=== PATIENT | male | born 1960 | race Caucasian/White ===

== ENCOUNTER 2024-01-07 02:14 | Inpatient (IN) | payer MEDICAID ==
[~2024-01-07] VITALS: Ht 180.3 cm; Wt 120.9 kg
[2024-01-07 02:34] LABS: BASOPHILS % (AUTO) 0.4 % (0-1); EOSINOPHILS % (AUTO) 0 % (0-6); HEMATOCRIT 40.5 % (42.0-52.0); HEMOGLOBIN 13.3 g/dl (14.0-17.9); LYMPHOCYTES # (AUTO) 0.7 X10'3 (1.1-4.8); MEAN CORPUSCULAR HEMOGLOBIN 28.6 PG (27.0-31.0); MEAN CORPUSCULAR HGB CONC 32.9 g/dL (33.0-36.5); MEAN CORPUSCULAR VOLUME 87.1 FL (78-98); MEAN PLATELET VOLUME 7.2 FL (7.4-10.4); MONOCYTES # (AUTO) 0.6 X10'3 (0-0.9); MONOCYTES % (AUTO) 5.4 % (2-12); NEUTROPHILS % (AUTO) 88.2 % (42-75); PLATELET COUNT 267 X10'3 (140-440); RED BLOOD COUNT 4.65 X10'6 (4.70-6.10); RED CELL DISTRIBUTION WIDTH 15.3 % (11.5-14.5); WHITE BLOOD COUNT 11.3 X10'3 (4.5-11.0)
[2024-01-07 02:50] LABS: ALANINE AMINOTRANSFERASE 20 U/L (12-78); ALBUMIN 3.3 G/DL (3.4-5.0); ALKALINE PHOSPHATASE 79 IU/L (46-116); ANION GAP 12 (8-16); ASPARTATE AMINO TRANSFERASE 20 U/L (10-37); BILIRUBIN,TOTAL 0.4 MG/DL (0.1-1.0); BLOOD UREA NITROGEN 24 MG/DL (7-18); BUN/CREATININE RATIO 13.7 (10.0-20.0); CALCIUM 8.8 MG/DL (8.5-10.1); CHLORIDE 106 MMOL/L (99-107); CREATININE 1.75 MG/DL (0.60-1.10); GLUCOSE 147 MG/DL (70-104); POTASSIUM 4.7 MMOL/L (3.5-5.1); SODIUM 140 MMOL/L (135-145); TOTAL CARBON DIOXIDE 21.6 MMOL/L (24-32); TOTAL PROTEIN 6.5 G/DL (6.4-8.2); eCRCL 45 ML/MIN; eGFR 39 ML/MIN
[2024-01-07] MEDS: normal saline 1000ml 1,000 ML IV ONE ×2 (02:56→03:35)
[2024-01-07] MEDS: ondansetron/PF 4mg/2ml inj IV ONE (02:56)
[2024-01-07 02:58] LABS: PRO BRAIN NATRIURETIC PEPTIDE 701 PG/ML (0-125)
[2024-01-07] MEDS: CefTRIAXone 2gm/D5W 50ml BAG 50 ML IV ONE (03:08)
[2024-01-07] MEDS: hydrALAZINE 20mg/ml inj. IV ONE ×2 (04:52→23:02)
[2024-01-07] MEDS ORDERED: ondansetron/PF 4mg/2ml inj IV PRN (04:55)
[2024-01-07] MEDS ORDERED: acetaminophen 325mg tablet PO PRN (04:55)
[2024-01-07] MEDS ORDERED: magnesium sulf-water 2g/50mL 50 ML IV PRN (04:55)
[2024-01-07] MEDS ORDERED: magnesium Cl slow-release 64mg tablet PO PRN (04:55)
[2024-01-07] MEDS ORDERED: magnesium sulf-water 4G/100mL 100 ML IV PRN (04:55)
[2024-01-07] MEDS ORDERED: potassium Cl 20 mEq SR tablet PO PRN ×2 (04:55)
[2024-01-07] MEDS ORDERED: potassium Cl 40MEQ/1/2NS 520ml 520 ML IV PRN (04:55)
[2024-01-07] MEDS ORDERED: morphine 2 MG/ML inj. syringe IV PRN (04:55)
[2024-01-07] MEDS ORDERED: mag hydrox/Alum hydrox/simeth 30ml oral suspension PO PRN (04:55)
[2024-01-07] MEDS ORDERED: magnesium hydroxide 30ml (MOM) UD suspension PO PRN (04:55)
[2024-01-07] MEDS ORDERED: DEXTROSE 15 GM of carb/4 tabs (each vial/BOTTLE has 4 tablets) PO PRN ×2 (05:10)
[2024-01-07] MEDS ORDERED: dextrose 50%-water 50ml dispensing syringe IV PRN ×2 (05:10)
[2024-01-07] MEDS ORDERED: glucagon, human recombinant 1mg kit SUBCUT PRN (05:10)
[2024-01-07] MEDS: normal saline 1000ml 1,000 ML IV SCH (05:18)
[2024-01-07] MEDS: azithromycin/NS 500mg/250ml 250 ML IV SCH (05:20)
[2024-01-07] MEDS: aspirin 325mg tablet, delayed-release (Ecotrin) PO ONE (05:24)
[2024-01-07 05:26] LABS: D-DIMER 1.02 MG/L FEU (0-0.50)
[2024-01-07] MEDS: INSULIN LISPRO 100 UNIT/ML INSULN.PEN MULTI-DOSE SQ SCH (07:00)
[2024-01-07 07:26] LABS: MEAN CORPUSCULAR HEMOGLOBIN 28.1 PG (27.0-31.0); MEAN CORPUSCULAR HGB CONC 32.4 g/dL (33.0-36.5); MEAN CORPUSCULAR VOLUME 86.6 FL (78-98); MEAN PLATELET VOLUME 7.4 FL (7.4-10.4); PLATELET COUNT 243 X10'3 (140-440); RED BLOOD COUNT 4.27 X10'6 (4.70-6.10); WHITE BLOOD COUNT 13.6 X10'3 (4.5-11.0)
[2024-01-07 07:33] LABS: BILIRUBIN,URINE NEGATIVE (Neg); CLARITY,URINE SLIGHTLY CLOUDY (Clear); COLOR,URINE YELLOW (Yellow); GLUCOSE, URINE >=1000 mg/dl (Neg); KETONES,URINE TRACE mg/dl (Neg); LEUKOCYTE ESTERASE ,URINE NEGATIVE (Neg); NITRITES, URINE NEGATIVE (Neg); OCCULT BLOOD,URINE NEGATIVE (Neg); PH,URINE 5.5 (4.8-8.0); PROTEIN,URINE 100 mg/dl (Neg); UROBILINOGEN,URINE 0.2 E.U/dL (0.2-1.0)
[2024-01-07] MEDS ORDERED: INSU100I5 SQ (07:36)
[2024-01-07] MEDS ORDERED: NEED-136 (07:36)
[2024-01-07] MEDS ORDERED: TRAZ150T78 (07:36)
[2024-01-07] MEDS ORDERED: ERTU15TA PO (07:36)
[2024-01-07] MEDS ORDERED: TRAZ-251 (07:36)
[2024-01-07] MEDS ORDERED: PIOG15TA67 PO (07:36)
[2024-01-07 07:37] LABS: UA COLLECTION TYPE URINAL
[2024-01-07 07:38] LABS: BACTERIA,URINE FEW /HPF (Neg); HYALINE CASTS 0-3 /LPF (NEGATIVE); SQUAMOUS EPITHELIAL CELL,UR FEW /LPF (FEW); WBC,URINE 0-4 /HPF (0-4)
[2024-01-07 07:44] LABS: MAGNESIUM 1.6 MG/DL (1.5-2.4)
[2024-01-07 07:51] LABS: HEMOGLOBIN A1C 7.1 % (4.5-6.2)
[2024-01-07] MEDS: K and/or MAG REPLACEMENT MC SCH (08:00)
[2024-01-07] MEDS: heparin, porcine 5000 units/ml vial SQ SCH (08:00)
[2024-01-07] MEDS: docusate sod 100mg capsule PO SCH (08:15)
[2024-01-07] MEDS: ringers solution, lacted 1,000 ML IV SCH (08:15)
[2024-01-07] MEDS: ipratropium/albuterol 3ml nebule NEB SCH (08:19)
[2024-01-07 08:27] VITALS: PULSE 85; RESP 18; O2SAT 96
[2024-01-07 08:35] VITALS: PULSE 102; RESP 19
[2024-01-07] MEDS: HEPARIN DRIP DVT/PE -**PHARMACIST TO DOSE IV ONE (08:35)
[2024-01-07] MEDS: methylPREDNISolone sod succ 125mg/2ml vial IV ONE (09:03)
[2024-01-07 09:19] LABS: PROTHROMBIN TIME 10.8 SECONDS (9.0-12.0)
[2024-01-07] MEDS ORDERED: heparin 25,000 UNIT/250ml bag 250 ML IV PRN (09:25)
[2024-01-07 10:08] LABS: BASOPHILS # (AUTO) 0.1 X10'3 (0-0.2); BASOPHILS % (AUTO) 0.5 % (0-1); EOSINOPHILS % (AUTO) 0 % (0-6); LYMPHOCYTES # (AUTO) 0.6 X10'3 (1.1-4.8); LYMPHOCYTES % (AUTO) 4.4 % (21-51); MONOCYTES % (AUTO) 7.4 % (2-12); NEUTROPHILS # (AUTO) 12.2 X10'3 (1.8-7.7); NEUTROPHILS % (AUTO) 87.7 % (42-75)
[2024-01-07] MEDS: heparin 10,000 units/1 ML INJ IV ONE (10:37)
[2024-01-07] MEDS: heparin 25,000 UNIT/250ml bag 250 ML IV PRN (10:38)
[2024-01-07] MEDS: MESSAGE TO NURSING IV ONE ×3 (10:39→23:07)
[2024-01-07] MEDS ORDERED: ipratropium/albuterol 3ml nebule NEB PRN (11:00)
[2024-01-07] MEDS: methylPREDNISolone sod succ/PF 40mg inj. IV SCH (16:00)
[2024-01-07] MEDS: magnesium sulf-water 2g/50mL 50 ML IV ONE (19:52)
[2024-01-07 20:45] VITALS: BP 188/98; PULSE 81; RESP 14; TEMP 97.7; O2SAT 96
[2024-01-07] MEDS: insulin glargine (Lantus) pen - multi-dose SQ SCH (21:20)
[2024-01-07] MEDS: CefTRIAXone/D5W-Rocephin 1gm 50 ML IV SCH (23:41)
[2024-01-07 23:45] VITALS: BP 150/76
[2024-01-07 23:51] VITALS: PULSE 84; RESP 18; O2SAT 96
[2024-01-08] VITALS (11 sets, daily range): BP systolic 156–194; BP diastolic 69–98; PULSE 80–101; RESP 14–20; TEMP 98.1–98.9; O2SAT 94–96
[2024-01-08] MEDS: Melatonin 3mg tablet PO SCH (01:29)
[2024-01-08 04:24] LABS: BASOPHILS # (AUTO) 0.1 X10'3 (0-0.2); BASOPHILS % (AUTO) 0.4 % (0-1); EOSINOPHILS % (AUTO) 0 % (0-6); HEMATOCRIT 36.3 % (42.0-52.0); HEMOGLOBIN 11.9 g/dl (14.0-17.9); LYMPHOCYTES # (AUTO) 0.7 X10'3 (1.1-4.8); LYMPHOCYTES % (AUTO) 4.4 % (21-51); MEAN CORPUSCULAR HEMOGLOBIN 28.3 PG (27.0-31.0); MEAN CORPUSCULAR HGB CONC 32.8 g/dL (33.0-36.5); MEAN CORPUSCULAR VOLUME 86.3 FL (78-98); MEAN PLATELET VOLUME 7.6 FL (7.4-10.4); MONOCYTES # (AUTO) 0.5 X10'3 (0-0.9); MONOCYTES % (AUTO) 2.7 % (2-12); NEUTROPHILS # (AUTO) 15.5 X10'3 (1.8-7.7); NEUTROPHILS % (AUTO) 92.5 % (42-75); PLATELET COUNT 228 X10'3 (140-440); RED BLOOD COUNT 4.21 X10'6 (4.70-6.10); RED CELL DISTRIBUTION WIDTH 15.5 % (11.5-14.5); WHITE BLOOD COUNT 16.8 X10'3 (4.5-11.0)
[2024-01-08 04:36] LABS: ALANINE AMINOTRANSFERASE 17 U/L (12-78); ALBUMIN 2.8 G/DL (3.4-5.0); ALBUMIN/GLOBULIN RATIO 0.8 (1.1-1.5); ALKALINE PHOSPHATASE 71 IU/L (46-116); ANION GAP 8 (8-16); ASPARTATE AMINO TRANSFERASE 17 U/L (10-37); BILIRUBIN,TOTAL 0.3 MG/DL (0.1-1.0); BLOOD UREA NITROGEN 32 MG/DL (7-18); BUN/CREATININE RATIO 19.9 (10.0-20.0); CALCIUM 8.9 MG/DL (8.5-10.1); CHLORIDE 106 MMOL/L (99-107); CREATININE 1.61 MG/DL (0.60-1.10); GLUCOSE 273 MG/DL (70-104); MAGNESIUM 2.2 MG/DL (1.5-2.4); POTASSIUM 4.9 MMOL/L (3.5-5.1); SODIUM 138 MMOL/L (135-145); TOTAL CARBON DIOXIDE 23.6 MMOL/L (24-32); TOTAL PROTEIN 6.3 G/DL (6.4-8.2); eCRCL 49 ML/MIN; eGFR 43 ML/MIN
[2024-01-08] MEDS: MESSAGE TO NURSING IV ONE ×4 (05:08→23:50)
[2024-01-08] MEDS: FLU VACC TS2024-25(6MOS UP)/PF 45 MCG/0.5 ML SYRINGE IMVAC ONE (08:00)
[2024-01-08] MEDS: pneumococcal 23-VAL P-sac vacc 25 mcg/0.5ml vial IMVAC ONE (08:02)
[2024-01-08] MEDS: lisinopril 20mg tablet PO SCH (09:34)
[2024-01-08 10:43] LABS: PROTHROMBIN TIME 10.5 SECONDS (9.0-12.0)
[2024-01-08] MEDS: heparin 10,000 units/1 ML INJ IV PRN (17:06)
[2024-01-08] MEDS ORDERED: metoprolol tartrate 1mg/ml inj IV PRN (17:45)
[2024-01-08] MEDS: lactobacillus rhamnosus 10,000 MMU CELLS/CAPSULE PO SCH (20:35)
[2024-01-08] MEDS: insulin glargine (Lantus) pen - multi-dose SQ SCH (20:43)
[2024-01-08] MEDS: INSULIN LISPRO 100 UNIT/ML INSULN.PEN MULTI-DOSE SQ SCH (20:46)
[2024-01-09 04:35] LABS: BASOPHILS # (AUTO) 0.1 X10'3 (0-0.2); BASOPHILS % (AUTO) 0.4 % (0-1); EOSINOPHILS % (AUTO) 0 % (0-6); HEMATOCRIT 37.4 % (42.0-52.0); HEMOGLOBIN 12.1 g/dl (14.0-17.9); LYMPHOCYTES # (AUTO) 0.9 X10'3 (1.1-4.8); LYMPHOCYTES % (AUTO) 6.1 % (21-51); MEAN CORPUSCULAR HEMOGLOBIN 28.2 PG (27.0-31.0); MEAN CORPUSCULAR HGB CONC 32.3 g/dL (33.0-36.5); MEAN CORPUSCULAR VOLUME 87.5 FL (78-98); MEAN PLATELET VOLUME 7.8 FL (7.4-10.4); MONOCYTES # (AUTO) 0.6 X10'3 (0-0.9); MONOCYTES % (AUTO) 3.6 % (2-12); NEUTROPHILS % (AUTO) 89.9 % (42-75); PLATELET COUNT 234 X10'3 (140-440); RED BLOOD COUNT 4.27 X10'6 (4.70-6.10); RED CELL DISTRIBUTION WIDTH 15.9 % (11.5-14.5); WHITE BLOOD COUNT 15.6 X10'3 (4.5-11.0)
[2024-01-09 04:53] LABS: ALANINE AMINOTRANSFERASE 18 U/L (12-78); ALBUMIN/GLOBULIN RATIO 0.9 (1.1-1.5); ALKALINE PHOSPHATASE 71 IU/L (46-116); ANION GAP 8 (8-16); ASPARTATE AMINO TRANSFERASE 15 U/L (10-37); BILIRUBIN,TOTAL 0.3 MG/DL (0.1-1.0); BLOOD UREA NITROGEN 38 MG/DL (7-18); CALCIUM 8.5 MG/DL (8.5-10.1); CHLORIDE 104 MMOL/L (99-107); CREATININE 1.65 MG/DL (0.60-1.10); GLUCOSE 290 MG/DL (70-104); MAGNESIUM 1.6 MG/DL (1.5-2.4); POTASSIUM 4.9 MMOL/L (3.5-5.1); SODIUM 136 MMOL/L (135-145); TOTAL CARBON DIOXIDE 24.4 MMOL/L (24-32); TOTAL PROTEIN 6.4 G/DL (6.4-8.2); eCRCL 48 ML/MIN; eGFR 42 ML/MIN
[2024-01-09] MEDS: MESSAGE TO NURSING IV ONE (05:12)
[2024-01-09 06:30] VITALS: BP 184/87; PULSE 72; RESP 18; TEMP 97.3; O2SAT 97
[2024-01-09] MEDS: pantoprazole 40mg Tablet.DR PO SCH (07:40)
[2024-01-09 08:00] VITALS: RESP 16; RESP 18; O2SAT 94; O2SAT 99
[2024-01-09] MEDS: amLODIPine 5mg tablet PO SCH (09:00)
[2024-01-09 09:15] LABS: PROTHROMBIN TIME 10.3 SECONDS (9.0-12.0)
[2024-01-09 09:38] VITALS: PULSE 98; RESP 20; O2SAT 96
[2024-01-09 10:00] VITALS: BP 164/77; PULSE 73; RESP 16; TEMP 97.2; O2SAT 99
[2024-01-09] MEDS ORDERED: LISI20TA28 PO (10:59)
[2024-01-09] MEDS ORDERED: LACT1CAP26 PO (10:59)
[2024-01-09] MEDS ORDERED: NOR5T PO (10:59)
[2024-01-09] MEDS ORDERED: PANT40TA54 PO (10:59)
[2024-01-09 11:03] VITALS: BP_SYST 184; PULSE 85
[2024-01-09] MEDS: lisinopril 20mg tablet PO STA (11:03)
[2024-01-09] MEDS ORDERED: AMOX-117 PO (12:24)
[2024-01-09] MEDS ORDERED: PRED10TA23 PO (12:24)
[2024-01-10] MEDS ORDERED: lisinopril 20mg tablet PO SCH (08:00)
== END 2024-01-09 13:05 | disposition home or self-care (01) | DRG 720 ==
LOC: ER 02:14 → ED HOLD 05:01 → EDBEDREQ 19:40 → ORTHO 4S 20:45
PROVIDERS: ADMIT Internal Medicine Sleep Medicine; ATTEND Family Medicine
PROC: CB1YYZZ Planar Nuclear Medicine Imaging of Respiratory System using Other Radionuclide (ICD-10-PCS; principal; 2024-01-08)
DX: A41.9 Sepsis, unspecified organism (principal); J96.01 Acute respiratory failure with hypoxia; I21.A1 Myocardial infarction type 2; J18.9 Pneumonia, unspecified organism; E87.20 Acidosis, unspecified; G20.A1 Parkinson's disease without dyskinesia, without mention of fluctuations; Z20.822 Contact with and (suspected) exposure to COVID-19; I16.0 Hypertensive urgency; I12.9 Hypertensive chronic kidney disease with stage 1 through stage 4 chronic kidney disease, or unspecified chronic kidney disease; N18.30 Chronic kidney disease, stage 3 unspecified; G47.33 Obstructive sleep apnea (adult) (pediatric); E66.01 Morbid (severe) obesity due to excess calories; Z68.37 Body mass index [BMI] 37.0-37.9, adult
CPT/HCPCS: 36415; 71045; 80053; 81001; 82948; 83036; 83605; 83735; 83880; 84145; 84484; 85025; 85027; 85379; 85610; 85730; 87040; 87081; 87502; 87503; 87811; 90686; 90732; 93005; 93308; 94640; 94760; 96365; 96375; 99285; A6590; G0378; J0360; J0456; J0696; J1644; J1815; J2405; J2919; J7030; J7120

== ENCOUNTER 2024-10-23 10:07 | Inpatient (IN) | payer MEDICAID ==
[~2024-10-23] VITALS: Ht 180.3 cm; Wt 115.9 kg
[~2024-10-23 10:07] MED LIST: ERTU15TA PO; INSU100I5 SQ; LACT1CAP26 PO; LISI20TA28 PO; NEED-136; NOR5T PO; PANT40TA54 PO; PIOG15TA67 PO; TRAZ-251; TRAZ150T78
[2024-10-23 10:39] LABS: MEAN PLATELET VOLUME 7.2 FL (7.4-10.4); RED CELL DISTRIBUTION WIDTH 15.6 % (11.5-14.5)
--- NOTE | 2024-10-23 10:43 | RADIOLOGY REPORT ---
CHEST RADIOGRAPH Indication: Weakness Technique: Single frontal view of the chest was obtained COMPARISON: DI CHEST,SINGLE VIEW on DOS: 01/07/24 FINDINGS: Lines and Tubes: None Lungs: Clear Pleura: No effusion. No pneumothorax. Cardiomediastinal contours: Unremarkable Bones: Unremarkable IMPRESSION: No acute disease.
[2024-10-23 10:55] LABS: CREATININE 2.07 MG/DL (0.60-1.10); TOTAL CARBON DIOXIDE 22.8 MMOL/L (24-32); eCRCL 38 ML/MIN; eGFR 32 ML/MIN
[2024-10-23] MEDS: dextrose 50%-water 50ml dispensing syringe IV ONE (11:52)
--- NOTE | 2024-10-23 12:38 | Physician Documentation ---
History of Present Illness ~ Chief Complaint: Hypoglycemia Stated Complaint: LOW BLOOD SUGAR Time Seen by MD: 10:11 Primary Medical Doctor: ROSETTE Mode of Arrival: EMS HPI This is a 64-year-old gentleman with a known history of type 2 diabetes, on insulin therapy, took actually less insulin this morning than usual, was brought in for evaluation of transient altered mental status with a unreadable glucose. The gentleman states that he was not his usual state of health earlier this morning, shopping at 10/23, when suddenly he developed slurred speech, severe confusion, was noted to be hypoglycemic. Received glucose with a recovery of the his mental status. This never happened to him in the past. No palliating or aggravating factors. Denies any preceding fever, chills, nausea, vomiting, diarrhea, abdominal pain, dysuria hematuria. Denies any current symptoms. Medication Reconciliation Allergies: Coded Allergies: No Known Allergies (Unverified , 10/23/24) Scheduled Amlodipine Besylate (Amlodipine Besylate), 10 MG PO DAILY Ertugliflozin Pidolate (Steglatro), 1 TAB PO DAILY, (Reported) Lactobacillus Rhamnosus (Culturelle), 10,000 MMU PO BID Lisinopril (Lisinopril), 40 MG PO DAILY Pantoprazole Sodium (Pantoprazole Sodium), 40 MG PO BKF Pioglitazone Hcl (Pioglitazone Hcl), 1 TAB PO DAILY, (Reported) Miscellaneous Medications Insulin Npl/Insulin Lispro (Humalog Mix 75-25 Kwikpen), SQ, (Reported) Trazodone HCl (Trazodone HCl), (Reported) Trazodone Hcl (Trazodone Hcl), (Reported) Durable Medical Equipment [place], Insulin Disposable (Bd Ultra-Fine Pen Needle), (Reported), (DME) Review of Systems ROS 10 point review of systems was performed and unless noted above in HPI is negative for acute process/complaint. Physical Exam Vital Signs: Temperature: 97.9, Source: Axillary, Heart Rate: 69, Respiratory Rate: 19, BP: 162/84, Pulse Oximetry: 98, Weight: 115.900 Oxygen Flow Rate: 0 Physical Exam GENERAL: Awake, alert, oriented, GCS 15, no apparent distress, non-toxic appearing, answers questions, follows commands appropriately. Examined in bed 4. HEENT: Atraumatic, normocephalic, pupils equal, extraocular muscles intact, sclerae anicteric, mucus membranes moist, oropharynx is clear, no stridor. NECK: supple, full active range of motion, trachea midline, no thyromegaly, no lymphadenopathy, no JVD. CARDIOVASCULAR: regular rate/rhythm, no murmurs/gallops/rubs, Pulses are 2+ in all extremities and symmetric. Capillary refill less than 2 seconds. PULMONARY: Nonlabored, good air movement ,no respiratory distress, speaking in full sentences, clear to auscultation bilaterally, no wheezing, no ronchi, no rales, no accessory muscle use. GASTROINTESTINAL: Soft, non-tender, non-distended, normal active bowel sounds, no organomegaly, no pulsatile masses, no CVA tenderness. NEUROLOGIC: Lucid with normal mental status. Normal facial symmetry. Moves all extremities symmetrically and with purpose. No truncal ataxia. Speech is fluid without evidence of dysarthria or aphasia, no focal deficits appreciated. Chronic parkinsonian tremor noted MUSCULOSKELETAL: There is full range of motion of all extremities. There is no joint pain or joint swelling or joint erythema. There is no muscle pain or tenderness or swelling. EXTREMITIES: warm, well-perfused, no cyanosis, no clubbing, no edema, no acute deformities. Skin: warm, dry, no rashes or lesions, no jaundice, no petechiae orpurpura. No ecchymosis. PSYCHIATRIC: Normal affect, normal insight, normal concentration. Focused exam: [] Progress Results/Orders Results/Orders Orders - JAGRUTI MARIE DO Urinalysis, Cult If Indicated (10/23/24 10:15) Chest,Single View (10/23/24 10:15) Monitor (10/23/24 10:15) Saline Lock (10/23/24 10:15) Hs Troponin I W Calculations (10/23/24 13:15) D5ns 1000ml (10/23/24 13:40) Completed Orders - JAGRUTI MARIE DO Cbc/Diff (10/23/24 10:15) ESR (10/23/24 10:15) C-Reactive Protein (10/23/24 10:15) Chest,Single View (10/23/24 10:15) MG (10/23/24 10:15) TSH (10/23/24 10:15) Free T4 (10/23/24 10:15) CMP (10/23/24 10:15) Hs Troponin I W Calculations (10/23/24 10:15) Hs Troponin I W Calculations (10/23/24 12:15) Dextrose 50%-Water (Dextrose 50%-Water S (10/23/24 11:50) Medications Received in ER Medications (Trade) Dose Ordered Sig/Guille Route PRN Reason Start Time Stop Time Status Last Admin Dose Admin (dextrose 50%-water syringe) 25 ml ONCE ONCE IV 10/23/24 11:50 10/23/24 11:51 DC 10/23/24 11:52 25 ML Vital Signs 10/23/24 10/23/24 10/23/24 10:11 10:24 11:55 Temp 97.9 Pulse 71 69 Resp 18 19 B/P (MAP) 148/61 162/84 (110) Pulse Ox 98 98 O2 Flow Rate 0 0 Laboratory Tests Test 10/23/24 10:22 10/23/24 10:32 10/23/24 11:46 10/23/24 12:31 White Blood Count 11.7 H Red Blood Count 4.34 L Hemoglobin 12.7 L Hematocrit 38.0 L Mean Corpuscular Volume 87.6 Mean Corpuscular Hemoglobin 29.2 Mean Corpuscular Hemoglobin Concent 33.3 Red Cell Distribution Width 15.6 H Platelet Count 231 Mean Platelet Volume 7.2 L Neutrophils (%) (Auto) 86.7 H Lymphocytes (%) (Auto) 7.2 L Monocytes (%) (Auto) 5.5 Eosinophils (%) (Auto) 0.2 Basophils (%) (Auto) 0.4 Neutrophils # (Auto) 10.1 H Lymphocytes # (Auto) 0.8 L Monocytes # (Auto) 0.6 Eosinophils # (Auto) 0.0 Basophils # (Auto) 0.0 CBC Comment Erythrocyte Sedimentation Rate 5 Sodium Level 135 Potassium Level 3.9 Chloride Level 104 Carbon Dioxide Level 22.8 L Anion Gap 8 Blood Urea Nitrogen 52 H Creatinine 2.07 H Estimated GFR/1.73 m2 32 BUN/Creatinine Ratio 25.1 H Glucose Level 94 Calcium Level 8.8 Magnesium Level 2.0 Total Bilirubin 0.3 Aspartate Amino Transf (AST/SGOT) 21 Alanine Aminotransferase (ALT/SGPT) 14 Alkaline Phosphatase 94 Troponin I High Sensitivity 9 17 C-Reactive Protein < 0.05 Total Protein 6.4 Albumin 3.4 Globulin 3.0 Albumin/Globulin Ratio 1.1 Thyroid Stimulating Hormone (TSH) 2.15 Free Thyroxine 0.73 Chemistry Comments Glucometer 108 H 68 L 91 Troponin I High Sens Percent Delta 88 Troponin I Hi Sens Absolute Change 8 Test 10/23/24 13:14 10/23/24 13:26 Glucometer 87 Medical Decision Making Findings Facility Status: ED Holds, [facility] process The plan was discussed with the patient, who demonstrates clear understanding of the plan and is in agreement with the plan unless otherwise noted in the chart. All questions have been answered, all concerns were addressed unless otherwise documented. I was available throughout their ED stay for frequent reassessment and questions. Differential Diagnoses (considered and possible or likely): [Hypoglycemia secondary to occult bacteremia, urinary tract infection, pneumonia, medication error] ??Differential Diagnoses (considered and unlikely, not requiring evaluation currently): [No evidence of CVA] MDM Data Please see [facility] for the following: Independent Historians and external Records Review. Historian: [Patient] Independent Historians: ?[EMS] Medication Management: [Reviewed medication list] Social History and determinants: [Reviewed] Please see the body of the note for the following: Any independent interpretations of ECG, imaging studies. All vitals signs/haemodynamics, ordered tests were independently reviewed and interpreted by myself. Nursing triage complaint and vitals reviewed, additional nursing notes were reviewed as available and I agree unless otherwise noted or documented in contradiction in the chart Vital Signs: Independently reviewed Labs: Independently interpreted Imaging: Independently interpreted Old Medical Records: Independently reviewed, see [facility] for relevant summary and information Pulse Oximetry: [96%] interpreted as [normal on room air] by me [Tie Carrier: [Regular Rate, Regular rhythm, no ectopy, NSR] reviewed and interpreted by me] Additionally notably showing: [Hemodynamics reviewed. The patient is not febrile, not tachycardic, no evidence of hypotension respiratory distress. Laboratory study notable for normal CBC except for 86% neutrophilic predominance. Could be reactive demargination. Chemistry notable for CAMRON on CKD in the setting of dehydration. Chemistry glucose was 94, an hour later it was 68. The gentleman required additional rescue medication. Thyroid studies are normal. Imaging shows no acute disease of the chest.] Unfortunately he does not maintain his blood sugars expected and continues to drop despite interventions. Tests considered but not ordered include: [Advanced imaging does not appear to be necessary in the setting] Social Determinants of Health Impact: Patient was evaluated in [facility] [place] to healthcare due to below par ratio of patient to medical providers. [] Comorbid Conditions Impacting Present Evaluation and Care/Treatment: [Diabetes] Management Discussions with other Healthcare Providers: [Hospitalist regarding admission] Treatment and Disposition Medication Management (Given or considered): [Glucose including drip]. See EMR for details Consideration for Hospitalization/Escalation/Deescalation of Care: Admission for observation has been considered, and is necessary for further management of his unexplained hypoglycemia ?ED Course:?[No recurrence of severe hypoglycemia, but does not maintain glucose despite of administration of D50.] ?Shared decision making:?[] Code status:?FULL Please see the full Electronic Medical Record for full details of nursing documentation, medications list, other records of complete past medical history and conditions, vital signs, laboratory studies, and any radiologic study interpretations by radiologists. Portions of this note were completed using [employer] dictation software and as a result there may exist minor errors in spelling. I have reviewed elements of past family and social history and agree as included in note. Departure Disposition: ADMITTED INPATIENT Admitted to Inpatient Unit: to hospitalist Impression: Primary Impression: Hypoglycemia Additional Impressions: Acute kidney injury Transient alteration of awareness Condition: Guarded Referrals: NO PRIMARY CARE PROVIDER (PCP) Signature Scribe Signature: No scribe Attestation: This note accurately reflects clinical decisions, work performed by myself, DO CYNTHIA Storey NICHOLAS M DO Oct 23, 2024 12:38
--- NOTE | 2024-10-23 13:44 | ELECTROCARDIOGRAPH REPORT ---
[facility] Test Date: 2024-10-23 Test Time: 10:17:12 Pat Name: LUCHO LOPEZ Department: EMERGENCY ROOM Room: Gender: M Programmer Developer: : 1960 Requested By: DEPARTMENT EMERGENCY Order Number: [id number] Reading MD: Measurements Intervals [place] Rate: 70 P: 60 WA: 35 QRS: 52 QRSD: 132 T: 19 QT: 383 QTc: 414 Interpretive Statements Sinus rhythm Short WA interval Nonspecific intraventricular conduction delay Please click the below link to view image of tracing.
[2024-10-23] MEDS ORDERED: magnesium sulf-water 4G/100mL 100 ML IV PRN (13:55)
[2024-10-23] MEDS ORDERED: potassium Cl 20 mEq SR tablet PO PRN ×2 (13:55)
[2024-10-23] MEDS ORDERED: magnesium sulf-water 2g/50mL 50 ML IV PRN (13:55)
[2024-10-23] MEDS ORDERED: ondansetron/PF 4mg/2ml inj IV PRN (13:55)
[2024-10-23] MEDS: PERFLUTREN PROTEIN-A MICROSPHR (Optison) 0.22 MG/ML 3ML VIAL IV ONE (13:55)
[2024-10-23] MEDS ORDERED: potassium Cl 40MEQ/1/2NS 520ml 520 ML IV PRN (13:55)
[2024-10-23] MEDS ORDERED: magnesium Cl slow-release 64mg tablet PO PRN (13:55)
--- NOTE | 2024-10-23 14:42 | HISTORY AND PHYSICAL-Residence ---
History & Physical Providers to CC Resident Creating Document: LORE GARG SOURAV ~ History of Present Illness Primary Medical Doctor: ROSETTE Reason for Admit\\Complaint: slurred speech, hypoglycemia History of Present Illness The patient is a 64-year-old male with longstanding type 2 diabetes mellitus on insulin therapy who presented for evaluation of an acute episode of confusion and slurred speech. Earlier this morning, while shopping at 7:11 a.m. around 8:00 a.m., he developed sudden onset of slurred speech, severe confusion, and unsteady gait, describing himself as "drunk like." He returned home and drank soda punch, which provided "some" relief. He called 911; paramedics found him confused with a glucose of 87. In the ED, he received glucose and his mental status improved. He denies loss of consciousness, seizure activity, urinary incontinence, chest pain, diaphoresis, fever, chills, nausea, vomiting, abdominal pain, or urinary symptoms. No recent medication. Of note, he was diagnosed with Parkinson's disease five month ago, he recently started on Sinemet. He takes 42 units of insulin in the morning and 38 units at night. Today he took 28 units of insulin of at 5:30 a.m. in the morning. Allergies: Coded Allergies: No Known Allergies (Unverified , 10/23/24) Home Medications Home Medications Active Culturelle (Lactobacillus Rhamnosus) 10 Billion Cell Capsule 10,000 Mmu PO BID 30 Days Pantoprazole Sodium 40 Mg Tablet.dr 40 Mg PO BKF 10 Days Lisinopril 20 Mg Tablet 40 Mg PO DAILY 30 Days Amlodipine Besylate 5 Mg Tablet 10 Mg PO DAILY 30 Days Reported Trazodone Hcl 150 Mg Tablet Trazodone HCl 50 Mg Tablet Bd Ultra-Fine Pen Needle ([place], Insulin Disposable) 31 Gauge X 5/16" Dis.needle Steglatro (Ertugliflozin Pidolate) 15 Mg Tablet 1 Tab PO DAILY Pioglitazone Hcl 15 Mg Tablet 1 Tab PO DAILY Humalog Mix 75-25 Kwikpen (Insulin Npl/Insulin Lispro) 100 Unit/Ml (75-25) Insuln.pen SQ Past Medical History Past Medical History Hypertension, Parkinson's disease, diabetes Past Surgical History Surgical History Comment Noncontributory Past Social History Social History Comment He lives with his roommate, independently ambulatory. Denies smoking, consumes alcohol occasionally, denies using recreational drugs. ROS All Other Systems: Reviewed and Negative ROS As stated above in the HPI, otherwise all systems are reviewed and negative. Exam Vitals: Vital Signs Date Time Temp Pulse Resp B/P (MAP) Pulse Ox O2 Delivery O2 Flow Rate FiO2 10/23/24 11:55 69 19 162/84 (110) 98 0 10/23/24 10:11 97.9 General: Awake and Alert, no acute distress. HEENT: Left eye is lazy, Conjunctiva pink, Sclera clear, Mucus Membranes moist. Left nasolabial slight droop Neck: Supple without masses and tenderness. Resp: Unlabored. Lungs clear to auscultation bilaterally. Heart: Regular Rate and rhythm, normal S1 and S2 without murmur, rub or gallop. Abdomen: Soft and non tender no organomegaly Extremities: High amplitude, high frequency tremor in left upper extremity. Motor strength 5/5 on right side 4/5 left side Skin: Warm and Dry. Diagnostic Data Last Recorded Lab Results: 10/23/24 1022 10/23/24 1022 Advance Care Planning Advanced Care plannin - 30 Minutes Additional Plan Assessment and plan Acute altered mentation Acute neurologic deficit, rule out stroke/TIA Possible hypoglycemia Acute episode of confusion, slurred speech, and ataxia -with the unclear onset resolution relationship to glucose administration. Those symptoms resolved, can not confidently attributed solely to relative hypoglycemia The recorded glucose was borderline; 87 The patient has multiple stroke risk factors diabetes, possibly parkinsonian related CVA disease A stroke workup is warranted to rule out a TIA or even a small stroke Admitted to neuro floor with telemetry - monitor neurologic status Non-con head CT, MRI, and echo ordered Follow hemoglobin A1c, and lipid panel Diabetes type 2 Insulin-dependent; 42 units in the morning, 38 units at night. We will temporarily withhold insulin and we will adjusted accordingly Hyperglycemia/hypoglycemia protocol in place Follow hemoglobin A1c and lipid panel CKD stage 3 Creatinine 2.07, EGFR 32.0 indicates CKD-unknown baseline Order urine lytes, to look for prerenal etiologies NS 50 mL/hour Monitor BMP Parkinson's disease Continue home medications. He is on Sinemet and amantadine, does not remember the dose Hypertension Home medications include ramipril and hydrochlorothiazide , we will resume after med rec DVT prophylaxis: Heparin subQ Code status: Full code The resident Date of Service: Oct 23, 2024 Billing Provider: ABEL PAT MD Common Visit Codes: [id number] INP/OBS CARE (HIGH) Secondary Visit Codes: [id number] CARE PLAN 30 MINUTES LORE GARG, RES Oct 23, 2024 14:42 ABEL PAT MD Oct 24, 2024 18:43
[2024-10-23] MEDS ORDERED: glucagon, human recombinant 1mg kit SUBCUT PRN (14:50)
[2024-10-23] MEDS ORDERED: DEXTROSE 15 GM of carb/4 tabs (each vial/BOTTLE has 4 tablets) PO PRN ×2 (14:50)
[2024-10-23] MEDS ORDERED: dextrose 50%-water 50ml dispensing syringe IV PRN ×2 (14:50)
--- NOTE | 2024-10-23 15:12 | RADIOLOGY REPORT ---
Procedure: [facility] Study Date and Requested Time: 10/23/2024 02:34 PM History: slurred speech Comparison: None Dose: CTDI: 66.77 mGy DLP: 1225.83 mGycm Technique: Multiplanar images obtained through the brain without intravenous contrast. Findings: Normal brain volume and formation. Mild chronic small vessel ischemic changes. No hemorrhages, masses, mass effect, midline shift, herniation or cytotoxic edema following a large v ascular territory. No intra-axial or extra-axial fluid collections. No evidence of hydrocephalus. The basal cisterns are patent. The pituitary gland, sella and parasellar regions are unremarkable. The cerebellar tonsils are in nor mal position. The cerebellum is unremarkable. The orbits and globes are unremarkable. The paranasal sinuses and mastoids are clear. There are no wo rrisome calvarial lesions. Impression: No evidence of acute intracranial abnormality.
[2024-10-23 15:34] LABS: LEUKOCYTE ESTERASE ,URINE NEGATIVE (Neg); NITRITES, URINE NEGATIVE (Neg); OCCULT BLOOD,URINE TRACE-INTACT (Neg)
[2024-10-23 15:40] LABS: UA COLLECTION TYPE CLN CATCH MIDSTREAM
[2024-10-23 15:42] LABS: SQUAMOUS EPITHELIAL CELL,UR FEW /LPF (FEW)
[2024-10-23 15:44] LABS: CREATININE,URINE RANDOM 16.0 MG/DL; TOTAL PROTEIN,URINE RANDOM 18.4 MG/DL; URINE AMPHETAMINE SCREEN NEGATIVE (Neg); URINE BARBITUATE SCREEN NEGATIVE (Neg); URINE BENZODIAZEPINES SCREEN NEGATIVE (Neg); URINE CANNABINOID SCREEN NEGATIVE (Neg); URINE COCAINE SCREEN NEGATIVE (Neg); URINE METHADONE SCREEN NEGATIVE (Neg); URINE OPIATE SCREEN NEGATIVE (Neg); URINE PHENCYCLIDINE SCREEN NEGATIVE (Neg)
[2024-10-23 15:51] LABS: OSMOLALITY UA 218 MOSM/K (50-1400)
[2024-10-23] MEDS: normal saline 1000ml 1,000 ML IV SCH (16:22)
[2024-10-23] MEDS: INSULIN LISPRO 100 UNIT/ML INSULN.PEN MULTI-DOSE SQ SCH (17:00)
[2024-10-23] MEDS: K and/or MAG REPLACEMENT MC SCH (20:00)
[2024-10-23 20:15] VITALS: BP 162/68; PULSE 69; RESP 16; TEMP 97.6; O2SAT 97
[2024-10-23 21:48] VITALS: RESP 16; O2SAT 97
[2024-10-23 22:00] VITALS: BP 150/69; PULSE 60; RESP 16; TEMP 97.4; O2SAT 99
[2024-10-24] VITALS (8 sets, daily range): BP systolic 98–169; BP diastolic 59–97; PULSE 72–99; RESP 13–17; TEMP 96.3–97.6; O2SAT 95–99
[2024-10-24 05:50] LABS: CHOL/HDL RATIO 2.1 (0.00-4.99); CREATININE 1.75 MG/DL (0.60-1.10); LDL CHOLESTEROL 47 MG/DL (50-100); TOTAL CARBON DIOXIDE 20.9 MMOL/L (24-32); eCRCL 45 ML/MIN; eGFR 39 ML/MIN
[2024-10-24 06:15] LABS: MEAN PLATELET VOLUME 7.6 FL (7.4-10.4); RED CELL DISTRIBUTION WIDTH 15.5 % (11.5-14.5)
[2024-10-24] MEDS ORDERED: LANTUS SUBCUT (13:04)
--- NOTE | 2024-10-24 17:38 | PROGRESS NOTE- Residence ---
Progress Note - Resident Providers to CC Resident Creating Document: LORE GARG RES ~ Antibiotic Timeout Antibiotic Ordered?: No Subjective Patient was seen and examined at bedside. No further episode of confusion or slurred speech. CT scan of the head was negative. Undergone MRI, report pending. If MRI is negative, patient can be discharged home with reduced dose of insulin as stated in discharge summary. No home health or SNF. Objective Vital Signs Date Time Temp Pulse Resp B/P (MAP) Pulse Ox O2 Delivery O2 Flow Rate FiO2 10/24/24 10:00 80 124/59 (80) 10/24/24 10:00 97.6 17 97 Room Air 10/24/24 07:39 0.0 General: Awake and Alert, no acute distress. HEENT: Left eye is lazy, Conjunctiva pink, Sclera clear, Mucus Membranes moist. Left nasolabial slight droop Neck: Supple without masses and tenderness. Resp: Unlabored. Lungs clear to auscultation bilaterally. Heart: Regular Rate and rhythm, normal S1 and S2 without murmur, rub or gallop. Abdomen: Soft and non tender no organomegaly Extremities: High amplitude, high frequency tremor in left upper extremity. Motor strength 5/5 on right side 4/5 left side Skin: Warm and Dry. Result Diagram: 10/24/24 0347 10/24/24 0347 Advance Care Planning Advanced Care plannin - 30 Minutes Assessment Assessment The patient is a 64-year-old male with longstanding type 2 diabetes mellitus on insulin therapy who presented for evaluation of an acute episode of confusion and slurred speech. Earlier this morning, while shopping at 7:11 a.m. around 8:00 a.m., he developed sudden onset of slurred speech, severe confusion, and unsteady gait, describing himself as "drunk like." He returned home and drank soda punch, which provided "some" relief. He called 911; paramedics found him confused with a glucose of 87. Plan Plan Acute altered mentation Acute neurologic deficit, rule out stroke/TIA Possible hypoglycemia Acute episode of confusion, slurred speech, and ataxia -with the unclear onset resolution relationship to glucose administration. Those symptoms resolved, can not confidently attributed solely to relative hypoglycemia The recorded glucose was borderline; 87 The patient has multiple stroke risk factors diabetes, possibly parkinsonian related CVA disease A stroke workup is warranted to rule out a TIA or even a small stroke Admitted to neuro floor with telemetry - monitor neurologic status Non-con head CT, MRI, and echo ordered, still pending Diabetes type 2 Insulin-dependent; 42 units in the morning, 38 units at night. We will temporarily withhold insulin and we will adjusted accordingly Hyperglycemia/hypoglycemia protocol in place hemoglobin A1c is 5.8, indicates tight glycemic control. On Ozempic, lost 25 pounds recently. LDL 47 CAMRON on CKD stage 3, likely ATN Creatinine trended down; 1.75 Urine lytes suggests intrensic etiology, no cast. NS 50 mL/hour Monitor BMP Parkinson's disease Continue home medications. He is on Sinemet and amantadine, does not remember the dose Hypertension Home medications include ramipril and hydrochlorothiazide , we will resume after med rec DVT prophylaxis: Heparin subQ Code status: Full code Date of Service: Oct 24, 2024 Billing Provider: ABEL PAT MD Common Visit Codes: [id number] INP/OBS CARE(HIGH) LORE GARG, RES Oct 24, 2024 17:38 ABEL PAT MD Oct 24, 2024 18:44
--- NOTE | 2024-10-24 17:38 | RADIOLOGY REPORT ---
EXAM: MR MRI HEAD CLINICAL HISTORY: stroke like sxs COMPARISON: CT CT HEAD on DOS: 10/23/24 TECHNIQUE: Multiplanar, multisequence magnetic resonance imaging of the brain was performed without contrast. FINDINGS: Normal brain volume and formation. Minimal Chronic small-vessel ischemic changes. Motion artifact limits evaluation of the GRE. There is midline high convexity frontal falx hypointens ity on GRE which is not well evaluated given artifact and may be artifactual. No corresponding signi ficant abnormality is noted on same-day CT brain with artifact limiting evaluation on T1 and T2. 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 No diffusion restriction to suggest an acute infarct. No masses, mass effect, midline shift or herniation. No evidence of hydrocephalus. The basal cisterns are patent. Vascular flow voids are maintained. Nonspecific partially empty sella. The cerebellar tonsils are in normal position. The cerebellum is unremarkable. The orbits and globes unremarkable. The paranasal sinuses are clear. Mild mucosal thickening of bilat eral inferior mastoids. No worrisome calvarial lesions. IMPRESSION: Motion artifact limits evaluation. Otherwise, no evidence of acute intracranial abnormalities. No ar eas of diffusion restriction to suggest an acute infarct.
[2024-10-25 02:00] VITALS: BP 148/90; PULSE 69; RESP 18; TEMP 97.5; O2SAT 96
[2024-10-25 05:58] LABS: MEAN PLATELET VOLUME 7.4 FL (7.4-10.4); RED CELL DISTRIBUTION WIDTH 15.5 % (11.5-14.5)
[2024-10-25 06:00] VITALS: BP_SYST 156; BP_SYST 167; BP_DIAS 73; PULSE 71; RESP 18; TEMP 98.1; O2SAT 97
[2024-10-25 06:01] LABS: CREATININE 1.62 MG/DL (0.60-1.10); TOTAL CARBON DIOXIDE 23.8 MMOL/L (24-32); eCRCL 48 ML/MIN; eGFR 43 ML/MIN
[2024-10-25 07:29] VITALS: BP_SYST 157; PULSE 70
--- NOTE | 2024-10-25 13:56 | DISCHARGE SUMMARY-Residence ---
Discharge Summary Providers to CC Resident Creating Document: LORE GARG, SOURAV ~ Discharge Summary Admission Diagnosis: Hypoglycemia, possible TIA? Hospital Course DATE OF ADMISSION: October 23, 2024 DATE OF DISCHARGE: October 25, 2024 Labs at the time of discharge WBCs 6.2 Hemoglobin 13.2 Sodium 140 Potassium 4.3 Creatinine 1.62 BUN 39 A1c 5.8 Head MRI Motion artifact limits evaluation. Otherwise, no evidence of acute intracranial abnormalities. No areas of diffusion restriction to suggest an acute infarct. Head CT No evidence of acute intracranial abnormality. Discharge Diagnosis\\Comment: Acute altered mentation TIA/Stroke ruled out Hypoglycemia Diabetes type 2 Acute on chronic CKD stage 3, likely ATN Parkinson's disease Hypertension Operations\\Procedures: None Consultants: None Complications: None Condition on DC: Stable New Medications: Insulin Glargine,Hum.rec.anlog* (Lantus*) 100 Unit/1 Ml Vial 35 UNITS SUBCUT BID for 30 Days, #30 ML Your hemoglobin A1c is 5.8, you have recently experienced hypoglycemia. Therefore, your insulin dose is reduced to 35 units twice daily; 35 units in a.m., 35 units in p.m. Continued Medications: Amlodipine Besylate (Amlodipine Besylate) 5 Mg Tablet 10 MG PO DAILY for 30 Days, #30 TAB Ertugliflozin Pidolate (Steglatro) 15 Mg Tablet 1 TAB PO DAILY Lactobacillus Rhamnosus (Culturelle) 10 Billion Cell Capsule 13302 MMU PO BID for 30 Days, #60 CAP Lisinopril (Lisinopril) 20 Mg Tablet 40 MG PO DAILY for 30 Days, #30 TAB Pantoprazole Sodium (Pantoprazole Sodium) 40 Mg Tablet.dr 40 MG PO BKF for 10 Days, #10 TAB.SR Pioglitazone Hcl (Pioglitazone Hcl) 15 Mg Tablet 1 TAB PO DAILY Trazodone HCl (Trazodone HCl) 50 Mg Tablet Discharge Summary: History of present illness The patient is a 64-year-old male with longstanding type 2 diabetes mellitus on insulin therapy who presented for evaluation of an acute episode of confusion and slurred speech. Earlier this morning, while shopping at 7:11 a.m. around 8:00 a.m., he developed sudden onset of slurred speech, severe confusion, and unsteady gait, describing himself as "drunk like." He returned home and drank soda punch, which provided minimal relief. He called 911; paramedics found him confused with a glucose of 87. In the ED, he received glucose and his mental status improved. He denies loss of consciousness, seizure activity, urinary incontinence, chest pain, diaphoresis, fever, chills, nausea, vomiting, abdominal pain, or urinary symptoms. No recent medication. Of note, he was diagnosed with Parkinson's disease five month ago, he recently started on Sinemet. He takes 42 units of insulin in the morning and 38 units at night. Today he took 28 units of insulin of at 5:30 a.m. in the morning. Hospital course Patient was admitted for sudden onset slurred speech, confusion, and altered mentation. Initial glucose was 56 (reported by patient), improving to 87 after glucose administration. Given his neurological symptoms, full stroke workup was initiated. CTA head, brain MRI, echo, were negative for acute CVA/TIA. Hemoglobin A1c was 5.8%, reflecting tight glycemic control. He had recently lost 25 lb on Ozempic, likely contributing to insulin sensitivity and hypoglycemia. Home insulin dose (42 units a.m., 30 units p.m.) we will deemed excessive in the current clinical context. Doses were reduced to 35 units both a.m. and p.m. Discharge physical exam General: Awake and Alert, no acute distress. HEENT: Left eye is lazy, Conjunctiva pink, Sclera clear, Mucus Membranes moist. Left nasolabial slight droop Neck: Supple without masses and tenderness. Resp: Unlabored. Lungs clear to auscultation bilaterally. Heart: Regular Rate and rhythm, normal S1 and S2 without murmur, rub or gallop. Abdomen: Soft and non tender no organomegaly Extremities: High amplitude, high frequency tremor in left upper extremity. Motor strength 5/5 on right side 4/5 left side Skin: Warm and Dry. Discharge course: Insulin dose reduced to 35 units both a.m. and p.m.. He remained stable throughout hospitalization with no recurrence of symptoms. Continued home medication Amlodipine 10 mg daily Lisinopril 40 mg daily Pantoprazole 40 mg Pioglitazone 15 mg daily Ertugliflozin 15mg daily Discharge instructions: Monitor and log glucose twice daily Share blood sugar log with primary care doctor for insulin adjustment Follow up with your PCP in one week Repeat BMP in one week to assess renal function; due to underlying CKD Continue Parkinson's medication and monitor for change in mobility or cognition Return to ED for any recurrent neurological symptoms or hypoglycemia *Problems/Diagnosis: (1) Hypoglycemia (2) Acute kidney injury Status: Acute Total Time Spent on D/C: > 30 Minutes Addendum ams likely 2 to hypoglycemia hypoglycemia 2 to meds likely due to wt loss and really well controlled t2dm Date of Service: Oct 25, 2024 Billing Provider: ABEL PAT MD Common Visit Codes: 17761-ONO/OBS DISCH DAY >30min LORE GARG, RES Oct 24, 2024 12:56 MIKE YIP, RES Oct 25, 2024 13:56 ABEL PAT MD Oct 25, 2024 20:10
== END 2024-10-25 08:49 | disposition home or self-care (01) | DRG 420 ==
LOC: ER 10:08 → ED HOLD 14:29 → ORTHO 4S 20:17
PROVIDERS: ADMIT Internal Medicine; ATTEND Internal Medicine
DX: E11.649 Type 2 diabetes mellitus with hypoglycemia without coma (principal); N17.0 Acute kidney failure with tubular necrosis; E11.22 Type 2 diabetes mellitus with diabetic chronic kidney disease; F02.80 Dementia in other diseases classified elsewhere, unspecified severity, without behavioral disturbance, psychotic disturbance, mood disturbance, and anxiety; G20.A1 Parkinson's disease without dyskinesia, without mention of fluctuations; I12.9 Hypertensive chronic kidney disease with stage 1 through stage 4 chronic kidney disease, or unspecified chronic kidney disease; N18.30 Chronic kidney disease, stage 3 unspecified
CPT/HCPCS: 36415; 70450; 70551; 71045; 80048; 80053; 80061; 80305; 81001; 82570; 82948; 83036; 83735; 83935; 84156; 84300; 84439; 84443; 84484; 85025; 85651; 86140; 87081; 93005; 96374; 97116; 97162; 99285; A6213; A6223; G0378; J1815; J3490; J7030; J7042